=== PATIENT | female | born 1965 | race Caucasian/White ===

== ENCOUNTER → 2016-10-21 | Day surgery (SDC) | payer MEDICARE, OTHER ==
[~2016-10-21] MED LIST: ALBU8I INH; DUONI NEB; FLON0.053; FLUO40CA PO; GABA300C3 PO; LACTATED RINGER'S 1,000 ML BAG IV ONE; LASI20TA PO; ONDANSETRON HCL 4 MG/2 ML VIAL ONE; PRED20 PO; PROPOFOL 500 MG/50 ML BTL IV ONE; TIOT1AER PO; VESI5TAB PO; Z.0.OXYGENDME NC; ZITH250T PO
--- NOTE | 2016-10-21 13:09 | GIPROC ---
[facility] [address] [facility], [address] COLONOSCOPY PROCEDURE REPORT EXAM DATE: 10/21/2016 PATIENT NAME: Isis Pineda MR #: [id number] BIRTHDATE: 1965 ENDOSCOPIST: Teresa Winston MD ORDER #: [id number] SCHEDULING ASSISTANT: Amelie Alvarado RN STATUS: outpatient INDICATIONS: The patient is a 51 yr old female here for a colonoscopy due to abdominal pain in the right lower quadrant MEDICATIONS: None and Per Anesthesia. PREP QUALITY: The [place] Bowel Prep Score was Right colon 2, Mid colon 2, and Left colon 2. Total = 6. PREP TYPE:GoLytely ESTIMATED BLOOD LOSS: None CONSENT: The patient understands the risks and benefits of the procedure and understands that these risks include, but are not limited to: sedation, allergic reaction, infection, perforation and/or bleeding. Alternative means of evaluation and treatment include, among others: physical exam, x-rays, and/or surgical intervention. The patient elects to proceed with this endoscopic procedure. medical equipment was checked for proper function. Hand hygiene and appropriate measures for infection prevention was taken. After the risks, benefits and alternatives of the procedure were thoroughly explained, Informed consent was verified, confirmed and timeout was successfully executed by the treatment team. A digital exam revealed external hemorrhoids The [id number] ([id number]) endoscope was introduced through the anus and advanced to the cecum, which was identified by both the appendix and ileocecal valve. The instrument was then slowly withdrawn as the colon was fully examined. COLON FINDINGS: Two polypoid shaped adenomatous polyps ranging between 3-5mm in size were found in the sigmoid colon. Multiple biopsies were performed using cold forceps. Three smooth sessile polyps ranging between 3-5mm in size were found in the rectum. A polypectomy was performed with cold forceps. The resection was complete and the polyp tissue was completely retrieved. Retroflexed views revealed internal hemorrhoids and Retroflexed views revealed medium internal hemorrhoids The scope was then completely withdrawn from the patient and the procedure terminated. PROCEDURE WITHDRAWAL TIME:6minutes ADVERSE EVENTS: There were no complications. IMPRESSIONS: 1. Two adenomatous polyps ranging between 3-5mm in size were found in the sigmoid colon; multiple biopsies were performed using cold forceps 2. Three sessile polyps ranging between 3-5mm in size were found in the rectum; polypectomy was performed with cold forceps 3. Retroflexed views revealed internal hemorrhoids 4. Retroflexed views revealed medium internal hemorrhoids 5. Revealed external hemorrhoids RECOMMENDATIONS: 1. Await biopsy results. Biopsy results will not be ready for 7-10 days. If you don't hear from us in two weeks, call our office for results. 2. Continue surveillance 3. Yearly hemoccult 4. Xray for CT of abdomen with contrast 5. Xray for CT of pelvis with contrast 6. Follow-up: [facility] 2 week(s) RECALL: Return 1 year Colonoscopy, pending biopsy results Teresa Winston MD eSigned: Teresa Winston MD 10/21/2016 1:09 PM cc: Olimpia Whalen, [facility] Lottie and Ailin Bowman M.D. PATIENT NAME: Issi Pineda MR#: [id number]
== END | disposition home or self-care (01) ==
LOC: ESDC 10:20
PROVIDERS: ATTEND Internal Medicine Gastroenterology
DX: R10.31 Right lower quadrant pain (principal); D12.5 Benign neoplasm of sigmoid colon; K62.1 Rectal polyp; K64.8 Other hemorrhoids; R10.13 Epigastric pain; K20.9 Esophagitis, unspecified; K29.70 Gastritis, unspecified, without bleeding
CPT/HCPCS: 00740; 00810; 43239; 45380; 45385; 88305; 88312; J2405; J3010; J7120